=== PATIENT | female | born 1940 | race Caucasian/White ===

== ENCOUNTER 2018-07-13 10:42 | Observation (INO) ==
[2018-07-13] MEDS ORDERED: Sod Chloride 0.9% Inj 1,000 ML IV.SIG ONE (11:19)
--- NOTE | 2018-07-13 11:20 | ED ---
HPI General Chief complaint: Syncope Stated complaint: Medical Time Seen by Provider: 07/13/18 11:09 History of Present Illness HPI narrative: 77-year-old female with a history of hypertension, hyperlipidemia , atrial fibrillation anticoagulated on Eliquis is brought to the ED by EMS for evaluation of near syncope. Patient is here on vacation from [place]. States that she was standing in front of the elevator of her hotel waiting for it to open when she suddenly felt lightheaded, weak and sweaty. States that she felt as though she was going to pass out however never lost consciousness. She did not fall, her helped hold her up and get her seated into a chair. She denies any associated chest pain, shortness of breath, heart palpitations, headache, numbness or tingling, one-sided weakness, fever, chills, cough or cold symptoms, nausea, vomiting, diarrhea, black or bloody stool. States that this morning she took her Diovan and flecainide as prescribed and also took prednisone and half a tramadol tablet which she has been prescribed for hip bursitis. States that when she woke up this morning she was feeling well. States this is never happened to her previously. She is still feeling weak. Denies any alcohol or drug use. No other complaints or concerns. Related Data Home Medications Medication Instructions Recorded Confirmed amlodipine [Norvasc] 5 mg PO DAILY 07/13/18 07/13/18 apixaban [Eliquis] 5 mg PO BID 07/13/18 07/13/18 cholecalciferol (vitamin D3) 400 unit PO BID 07/13/18 07/13/18 [Vitamin D3] coQ10 (ubiquinol) 200 mg PO DAILY 07/13/18 07/13/18 flecainide 50 mg PO Q12H 07/13/18 07/13/18 lorazepam [Ativan] 0.5 mg PO DAILY PRN 07/13/18 07/13/18 lovastatin 20 mg PO QPM 07/13/18 07/13/18 multivitamin 1 tab PO DAILY 07/13/18 07/13/18 [id number] oil [[place]-3 1,000 mg PO DAILY 07/13/18 07/13/18 Fish Oil] potassium chloride 40 meq PO DAILY 07/13/18 07/13/18 prednisone 20 mg PO DAILY 07/13/18 07/13/18 tramadol 50 mg PO Q4-6H PRN 07/13/18 07/13/18 valsartan-hydrochlorothiazide 1 tab PO DAILY 07/13/18 07/13/18 [Diovan HCT] Allergies Allergy/AdvReac Type Severity Reaction Status Date / Time Penicillins Allergy Rash Verified 07/13/18 10:59 acetaminophen [From Percocet] AdvReac Weakness Verified 07/13/18 11:00 oxycodone [From Percocet] AdvReac Weakness Verified 07/13/18 11:00 Review of Systems ROS: all other systems reviewed are negative [facility] Medical History Medical History Atrial fibrillation (Acute) GI bleed (Acute) History of palpitations (Acute) Hyperlipidemia (Acute) Hypertension (Acute) Mitral regurgitation (Acute) Surgical History Surgical History No history of previous surgery (Acute) Total knee replacement status (Acute) Family History Family History Sister No problems noted. Brother HTN (hypertension) Mother HTN (hypertension) Social History Social History Substance History: No History of Abuse Second Hand Smoke Exposure: No Smoking Status: Never smoker How Often Do You Have a Drink Containing Alcohol: Never Immunization History Tetanus Immunization: Unsure Exam Narrative Exam Narrative: GENERAL: Well-nourished and well-developed pleasant patient in no acute distress who is nontoxic appearing. SKIN: Warm and dry without any obvious rashes or lesions. HEAD: Normocephalic and atraumatic. EYES: No injection, drainage, or hyphema noted. PERRLA. EOMI. ENT: No nasal drainage noted. Oropharynx is clear. NECK: Supple and the trachea is midline. CARDIOVASCULAR: Regular rate and rhythm. RESPIRATORY: Breath sounds are equal bilaterally with no accessory muscle use, wheezing, rhonchi, or crackles. GASTROINTESTINAL: Abdomen is soft, non-tender, and nondistended. RECTAL EXAM: No masses or tenderness, stool is brown. Performed in the presence of Hanna BARTON. MUSCULOSKELETAL: No obvious deformities, swelling, cyanosis, or ecchymosis is present throughout the upper and lower extremities. Patient has full range of motion without any signs of neurovascular compromise. Distal pulses are 2+ throughout. Strength 5/5 upper and lower extremities and equal bilaterally. NEUROLOGICAL: Awake, alert, and oriented. Normal speech and gait. Cranial nerves are grossly intact. Procedures Hemaprompt Stool Procedural Steps Taken: specimen placed in appropriate test area, developer placed on specimen and control areas and controls appropriately positive and negative Hemaprompt Stool Result: negative Course Initial Documented Vital Signs Temperature 95.0 F L 07/13/18 10:47 Pulse Rate 89 07/13/18 10:47 Respiratory Rate 16 07/13/18 10:47 Blood Pressure 211/95 H 07/13/18 10:47 Last Documented Vital Signs Temperature 97.4 F L 07/13/18 10:58 Pulse Rate 78 07/13/18 14:15 Respiratory Rate 18 07/13/18 14:15 Blood Pressure 157/90 H 07/13/18 14:15 Pulse Oximetry 99 07/13/18 14:15 Medical Decision Making LESLIE Attestation LESLIE supervised visit: Yes Attestation: Please see mid-level provider note for full history and physical. Patient is a 77-year-old female who presented to the emergency department complaining of feeling weak, sweaty, and dizzy as if she was going to pass out. States that she did not pass out but states that she was found slumped over. She denies chest pain, shortness of breath, fever, chills, abdominal pain, diarrhea, nausea or vomiting, and reports normal p.o. intake. She was afebrile and hypertensive and did not take 1 of her BP meds today. She was given a dose of her blood pressure medication, norvasc. Additionally, her potassium was low she was repleted with 20 MEQ IV over 2 hours and 40 MEQ p.o. She became hypotensive during her ER stay and was given 1 L IV normal saline. He was admitted to the hospitalist for further evaluation and management. MDM Narrative Medical decision making narrative: 77-year-old female is brought to the emergency department by EMS for evaluation of near syncope. Patient is afebrile. Her blood pressure is elevated at 215/91. Otherwise vital signs are normal. IV access is obtained, labs of been drawn and sent. Patient is placed on cardiac telemetry and pulse oximetry monitoring. Patient administered amlodipine 5 mg orally or blood pressure as this is her regular blood pressure medication she has not yet taken. EKG shows atrial flutter with ventricular rate of 72 bpm, no acute STEMI. There are ST depressions in leads I, II, III, V5, V6 and T wave inversions in AVL and V5. CBC shows slightly elevated white blood cell count of 11.8, otherwise unremarkable. Coags are unremarkable. CMP shows hypokalemia with a potassium of 2.9 and slightly decreased calcium of 7.7. Troponin is less than 0.02. Head CT shows chronic deep white matter changes without evidence of acute abnormality. Chest x-ray is negative for any acute abnormalities. Patient with arrhythmia and hypokalemia with near syncope. Potassium repletion ordered. Patient has remained stable while here in the ED. She will be kept in observation. I spoke with Dr. Guzman [facility] who accepts the patient under her service. Medical Screen Exam Complete: Yes Emergency Medical Condition: Yes Differential Diagnosis Differential Diagnosis: Dehydration versus electrolyte abnormality versus atrial fibrillation versus UTI versus GI bleed Lab Data Result diagrams: 07/13/18 11:10 07/13/18 11:10 Lab Results 07/13/18 07/13/18 07/13/18 Range/Units 11:10 11:10 11:10 WBC 11.8 H (4.0-11.0) th/mm3 RBC 4.60 (4.00-5.30) mil/mm3 Hgb 15.2 (11.6-15.3) gm/dL Hct 44.9 (35.0-46.0) % MCV 97.4 (80.0-100.0) fL MCH 33.0 (27.0-34.0) pg MCHC 33.9 (32.0-36.0) % RDW 13.3 (11.6-17.2) % Plt Count 258 (150-450) th/mm3 MPV 8.8 (7.0-11.0) fL Prelim Diff (Auto) Slide review pending Neut % (Auto) 66.7 (16.0-70.0) % Lymph % (Auto) 24.8 (9.0-44.0) % [place] % (Auto) 6.8 (0.0-8.0) % Eos % (Auto) 1.4 (0.0-4.0) % Baso % (Auto) 0.3 (0.0-2.0) % Neut # (Auto) 7.9 H (1.8-7.7) th/mm3 Lymph # (Auto) 2.9 (1.0-4.8) th/mm3 [place] # (Auto) 0.8 (0.0-0.9) th/mm3 Eos # (Auto) 0.2 (0.0-0.4) th/mm3 Baso # (Auto) 0.0 (0.0-0.2) th/mm3 WBC Differential . Diff Scan Auto diff confirmed Differential Comment . PT 11.1 (9.8-11.6) sec INR 1.1 Ratio APTT 20.4 L (24.3-30.1) sec Sodium 143 (136-145) meq/L Potassium 2.9 L* (3.5-5.1) meq/L Chloride 107 (98-107) meq/L Carbon Dioxide 27.2 (21.0-32.0) meq/L Anion Gap 9 (5-15) meq/L BUN 17 (7-18) mg/dL Creatinine 0.82 (0.50-1.00) mg/dL Estimated GFR 68 L (>89) mL/min Random Glucose 98 (74-106) mg/dL Calcium 7.7 L (8.5-10.1) mg/dL Magnesium 1.6 (1.5-2.5) mg/dL Total Bilirubin 0.4 (0.2-1.0) mg/dL AST 17 (15-37) U/L ALT 23 (10-53) U/L Alkaline Phosphatase 51 (45-117) U/L Troponin I Less than 0.02 L (0.02-0.05) ng/mL Total Protein 6.1 L (6.4-8.2) g/dL Albumin 3.1 L (3.4-5.0) g/dL Urine Color (Yellw/Straw) Urine Clarity (Clear) Urine pH (5.0-8.5) Ur Specific [place] (1.002-1.035) Urine Protein (Neg-Trace) mg/dL Urine Glucose (UA) (Negative) mg/dL Urine Ketones (Negative) mg/dL Urine Occult Blood (Negative) Urine Nitrate (Negative) Urine Bilirubin (Negative) Urine Urobilinogen (Less than 2) mg/dL Ur Leukocyte Esterase (Negative) Urine RBC (0-3) /hpf Urine WBC (0-5) /hpf Micro UA Comment Ur Microscopic Review Urine Culture Comments 07/13/18 Range/Units 13:00 WBC (4.0-11.0) th/mm3 RBC (4.00-5.30) mil/mm3 Hgb (11.6-15.3) gm/dL Hct (35.0-46.0) % MCV (80.0-100.0) fL MCH (27.0-34.0) pg MCHC (32.0-36.0) % RDW (11.6-17.2) % Plt Count (150-450) th/mm3 MPV (7.0-11.0) fL Prelim Diff (Auto) Neut % (Auto) (16.0-70.0) % Lymph % (Auto) (9.0-44.0) % [place] % (Auto) (0.0-8.0) % Eos % (Auto) (0.0-4.0) % Baso % (Auto) (0.0-2.0) % Neut # (Auto) (1.8-7.7) th/mm3 Lymph # (Auto) (1.0-4.8) th/mm3 [place] # (Auto) (0.0-0.9) th/mm3 Eos # (Auto) (0.0-0.4) th/mm3 Baso # (Auto) (0.0-0.2) th/mm3 WBC Differential Diff Scan Differential Comment PT (9.8-11.6) sec INR Ratio APTT (24.3-30.1) sec Sodium (136-145) meq/L Potassium (3.5-5.1) meq/L Chloride (98-107) meq/L Carbon Dioxide (21.0-32.0) meq/L Anion Gap (5-15) meq/L BUN (7-18) mg/dL Creatinine (0.50-1.00) mg/dL Estimated GFR (>89) mL/min Random Glucose (74-106) mg/dL Calcium (8.5-10.1) mg/dL Magnesium (1.5-2.5) mg/dL Total Bilirubin (0.2-1.0) mg/dL AST (15-37) U/L ALT (10-53) U/L Alkaline Phosphatase (45-117) U/L Troponin I (0.02-0.05) ng/mL Total Protein (6.4-8.2) g/dL Albumin (3.4-5.0) g/dL Urine Color Straw (Yellw/Straw) Urine Clarity Clear (Clear) Urine pH 8.0 (5.0-8.5) Ur Specific [place] 1.006 (1.002-1.035) Urine Protein Negative (Neg-Trace) mg/dL Urine Glucose (UA) Negative (Negative) mg/dL Urine Ketones Negative (Negative) mg/dL Urine Occult Blood Negative (Negative) Urine Nitrate Negative (Negative) Urine Bilirubin Negative (Negative) Urine Urobilinogen Less than 2 (Less than 2) mg/dL Ur Leukocyte Esterase Negative (Negative) Urine RBC Less than 1 (0-3) /hpf Urine WBC 2 (0-5) /hpf Micro UA Comment Culture not ind Ur Microscopic Review Not Reportable Urine Culture Comments Culture not ind Imaging Data Radiologist's impression: Chest X-Ray 07/13/18 11:19 CONCLUSION: 1. Evidence of previous granulomatous disease. 2. No infiltrate. Head CT 07/13/18 11:21 CONCLUSION: 1. Chronic deep white matter changes without evidence of hemorrhage or mass effect. . Discharge Plan Discharge Disposition Patient Disposition: 30 Still Patient Discharge Details Diagnosis: Near syncope, Acute hypokalemia, Atrial flutter Physicians Team ED Provider: Laura Miguel ED Midlevel Provider: Diana Johnson Primary Care Provider: Primary Care Meli Faust Attending Provider: Lilli Guzman Other Providers: [facility],Insurance Status ED Status: Admitted Observation Patient
[2018-07-13] MEDS ORDERED: amLODIPine 5 MG Tablet PO ONE (11:27)
[2018-07-13 11:37] LABS: Baso % (Auto) 0.3 % (0.0-2.0); Eos # (Auto) 0.2 th/mm3 (0.0-0.4); Eos % (Auto) 1.4 % (0.0-4.0); Hematocrit 44.9 % (35.0-46.0); Hemoglobin 15.2 gm/dL (11.6-15.3); Lymph # (Auto) 2.9 th/mm3 (1.0-4.8); Lymph % (Auto) 24.8 % (9.0-44.0); Mean Corpuscular HGB Conc 33.9 % (32.0-36.0); Mean Corpuscular Volume 97.4 fL (80.0-100.0); Mean Platelet Volume 8.8 fL (7.0-11.0); Mono # (Auto) 0.8 th/mm3 (0.0-0.9); Mono % (Auto) 6.8 % (0.0-8.0); Neut # (Auto) 7.9 th/mm3 (1.8-7.7); Neut % (Auto) 66.7 % (16.0-70.0); Platelet Count 258 th/mm3 (150-450); Red Cell Distribution Width 13.3 % (11.6-17.2); White Blood Count 11.8 th/mm3 (4.0-11.0)
[2018-07-13 11:53] LABS: Alanine Aminotransferase 23 U/L (10-53); Albumin 3.1 g/dL (3.4-5.0); Anion Gap 9 meq/L (5-15); Aspartate Aminotransferase 17 U/L (15-37); Blood Urea Nitrogen 17 mg/dL (7-18); Calcium 7.7 mg/dL (8.5-10.1); Carbon Dioxide 27.2 meq/L (21.0-32.0); Chloride 107 meq/L (98-107); Glomerular Filtration Rate 68 mL/min (>89); Glucose,Random 98 mg/dL (74-106); Magnesium 1.6 mg/dL (1.5-2.5); Sodium 143 meq/L (136-145)
[2018-07-13 11:54] LABS: Activated Partial Thrombo Time 20.4 sec (24.3-30.1); INR 1.1 Ratio; Prothrombin Time 11.1 sec (9.8-11.6)
[2018-07-13 11:57] LABS: Alkaline Phosphatase 51 U/L (45-117); Total Protein 6.1 g/dL (6.4-8.2)
[2018-07-13 12:00] LABS: Potassium 2.9 meq/L (3.5-5.1)
--- NOTE | 2018-07-13 12:00 | XR ---
EXAM DATE: 07/13/2018 11:56 AM EDT AGE/SEX: 77 years / Female INDICATIONS: Short of breath and weakness since this morning. CLINICAL DATA: This is the patient's initial encounter. Patient reports that signs and symptoms have been present for 1 day and indicates a pain score of 0/10. MEDICAL/SURGICAL HISTORY: None. None. COMPARISON: No prior exams available for comparison. FINDINGS: A single AP view of the chest demonstrates the lungs to be symmetrically aerated without evidence of mass, infiltrate or effusion. Prominent calcified right hilar adenopathy. The cardiomediastinal conto urs are unremarkable. Osseous structures are intact. CONCLUSION: 1. Evidence of previous granulomatous disease. 2. No infiltrate. Electronically signed by: Yayo Arnold MD 07/13/2018 11:59 AM EDT
--- NOTE | 2018-07-13 12:08 | CT ---
EXAM DATE: 07/13/2018 12:05 PM EDT AGE/SEX: 77 years / Female INDICATIONS: Syncopal event today CLINICAL DATA: This is the patient's initial encounter. Patient reports that signs and symptoms have been present for 1 day and indicates a pain score of 0/10. MEDICAL/SURGICAL HISTORY: Hypertension. mitral regurgitation a-fib None. RADIATION DOSE: 56.35 CTDI (mGy) COMPARISON: No prior exams available for comparison. TECHNIQUE: CT of the head without contrast. Using automated exposure control and adjustment of the mA and/or kV according to patient size, radiation dose was kept as low as reasonably achievable to ob tain optimal diagnostic quality images. DICOM format image data is available electronically for revi ew and comparison. FINDINGS: Cerebrum: The ventricles are normal for age. No evidence of midline shift, mass lesion, hemorrhage or acute infarction. There are some scattered age indeterminate hypodensity throughout the deep white matter tracts I suspect related to ischemic demyelinization. No definite acute edema or hemorrhage i s identified No extraaxial fluid collections are seen. Posterior Fossa: The cerebellum and brainstem are intact. The 4th ventricle is midline. The cerebe llopontine angle is unremarkable. Extracranial: The visualized portion of the orbits is intact. Skull: The calvaria is intact. No evidence of skull fracture. CONCLUSION: 1. Chronic deep white matter changes without evidence of hemorrhage or mass effect. . Electronically signed by: Terence Hunter MD 07/13/2018 12:07 PM EDT
[2018-07-13] MEDS ORDERED: Potassium Chlor 20 mEq Premix 20 MEQ/100 ML PIGGYBACK IV.SIG ONE (12:19)
[2018-07-13 13:48] LABS: Bilirubin,Urine Negative (Negative); Clarity,Urine Clear (Clear); Color,Urine Straw (Yellw/Straw); Glucose,Urine (UA) Negative (Negative); Leukocyte Esterase,Urine Negative (Negative); Nitrite,Urine Negative (Negative); Specific Gravity,Urine 1.006 (1.002-1.035)
[2018-07-13] MEDS ORDERED: Bisacodyl 10 MG Supp RECTAL PRN (13:48)
[2018-07-13] MEDS ORDERED: LORazepam 0.5 MG Tablet PO PRN (13:51)
--- NOTE | 2018-07-13 14:01 | P.HP ---
History of Present Illness Primary Care Physician: No Primary Care Physician Chief Complaint: nausea, syncope History of Present Illness: Pleasant 77-year-old female with a history of hypertension, hyperlipidemia, atrial fibrillation anticoagulated on Eliquis is brought to the ED by EMS for evaluation of near syncope. Patient is here on vacation from [place]. States that she was standing in front of the elevator of her hotel waiting for it to open when she suddenly felt lightheaded, weak and sweaty. States that she felt as though she was going to pass out however never lost consciousness. She did not fall, her helped hold her up and get her seated into a chair. She denies any associated chest pain, shortness of breath, heart palpitations, headache, numbness or tingling, one-sided weakness, fever, chills, cough or cold symptoms, nausea, vomiting, diarrhea, black or bloody stool. States that this morning she took her Diovan and flecainide as prescribed and also took prednisone and half a tramadol tablet which she has been prescribed for hip bursitis. States that when she woke up this morning she was feeling well. States this is never happened to her previously. She is still feeling weak. Denies any alcohol or drug use. No other complaints or concerns. - Diagnosis (1) Near syncope (2) Acute hypokalemia (3) Atrial flutter Review of Systems All other systems reviewed negative except as stated in HPI PMFSH - History History Provided By: Patient - Medical History Medical History: Medical History (Last Reviewed 07/13/18 @ 14:23 by Lilli Guzman MD) Atrial fibrillation GI bleed History of palpitations Hyperlipidemia Hypertension Mitral regurgitation - Surgical History Surgical History: Surgical History (Last Updated 07/13/18 @ 14:25 by Lilli Guzman MD) No history of previous surgery Total knee replacement status - Family History Family History: Family History (Last Updated 07/13/18 @ 14:23 by Lilli Guzman MD) Sister No problems noted. Brother HTN (hypertension) Mother HTN (hypertension) - Social History I have reviewed the patient's Social History: Yes - Tobacco History Second Hand Smoke Exposure: No Smoking Status: Never smoker - Alcohol History How Often Do You Have a Drink Containing Alcohol: Never - Substance Use History Substance History: No History of Abuse - Immunization History Tetanus Immunization: Unsure Medications and Allergies Active Medications: Active Medications Al Hydroxide/Mg Hydroxide (Milk Of Magnesia Liq) 30 ml PO Q12H PRN PRN Reason: Mild Constipation Amlodipine Besylate (Norvasc) 5 mg PO DAILY NORIS Apixaban (Eliquis) 5 mg PO BID NORIS Bisacodyl (Dulcolax Supp) 10 mg RECTAL DAILY PRN PRN Reason: SEVERE CONSITIPATION Flecainide Acetate (Tambocor) 50 mg PO Q12H NORIS Potassium Chloride (Kcl 20 Meq Premix Inj) 20 meq in 100 mls @ 50 mls/hr IV.SIG ONCE ONE Stop: 07/13/18 14:18 Last Admin: 07/13/18 13:16 Dose: 50 mls/hr Lactulose (Lactulose Liq) 30 ml PO DAILY PRN PRN Reason: SEVERE CONSITIPATION Lorazepam (Ativan) 0.5 mg PO DAILY PRN PRN Reason: Anxiety Non-Formulary Medication (Lovastatin [Lovastatin]) 20 mg PO QPM NORIS Non-Formulary Medication (Multivitamin [Multivitamin]) 1 tab PO DAILY [facility] Non-Formulary Medication (Potassium Chloride [Potassium Chloride]) 40 meq PO DAILY NORIS Non-Formulary Medication (Valsartan-Hydrochlorothiazide [Diovan Hct]) 1 tab PO DAILY NORIS Ondansetron HCl (Zofran Inj) 4 mg IV.PUSH Q6H PRN PRN Reason: NAUSEA OR VOMITING Prednisone (Deltasone) 20 mg PO DAILY [facility] Senna/Docusate Sodium (Giselle-Colace) 1 tab PO BID [facility] Sennosides (Senokot) 17.2 mg PO Q12H PRN PRN Reason: Moderate Constipation Sodium Chloride (Ns Flush) 2 ml IV.FLUSH PRN PRN PRN Reason: FLUSH AFTER USING IV ACCESS Last Admin: 07/13/18 12:16 Dose: 2 ml Tramadol HCl (Ultram) 50 mg PO Q4-6H PRN PRN Reason: Pain Allergies Allergy/AdvReac Type Severity Reaction Status Date / Time Penicillins Allergy Rash Verified 07/13/18 10:59 acetaminophen [From Percocet] AdvReac Weakness Verified 07/13/18 11:00 oxycodone [From Percocet] AdvReac Weakness Verified 07/13/18 11:00 Home Medications Medication Instructions Recorded Confirmed Type amlodipine [Norvasc] 5 mg PO DAILY 07/13/18 07/13/18 History apixaban [Eliquis] 5 mg PO BID 07/13/18 07/13/18 History cholecalciferol (vitamin D3) 400 unit PO BID 07/13/18 07/13/18 History [Vitamin D3] coQ10 (ubiquinol) 200 mg PO DAILY 07/13/18 07/13/18 History flecainide 50 mg PO Q12H 07/13/18 07/13/18 History lorazepam [Ativan] 0.5 mg PO DAILY PRN 07/13/18 07/13/18 History lovastatin 20 mg PO QPM 07/13/18 07/13/18 History multivitamin 1 tab PO DAILY 07/13/18 07/13/18 History kpkyv-[id number]-hia-epa-fish oil [[place]-3 1,000 mg PO DAILY 07/13/18 07/13/18 History Fish Oil] potassium chloride 40 meq PO DAILY 07/13/18 07/13/18 History prednisone 20 mg PO DAILY 07/13/18 07/13/18 History tramadol 50 mg PO Q4-6H PRN 07/13/18 07/13/18 History valsartan-hydrochlorothiazide 1 tab PO DAILY 07/13/18 07/13/18 History [Diovan HCT] Exam Vital signs: Vital Signs 07/13/18 10:47 07/13/18 10:58 07/13/18 11:19 Temperature 95.0 F L 97.4 F L Pulse Rate 89 80 74 Respiratory Rate 16 16 20 Blood Pressure 211/95 H 215/91 H 190/85 H Pulse Oximetry 97 98 Intake & Output 07/12/18 07/13/18 07/13/18 18:59 06:59 18:59 Intake Total 0 / 0 Balance 0 / 0 Weight 70 kg Intake: IV 0 / 0 NS Inj 1,000 ML @ Wide Open IV. 0 / 0 SIG BOLUS ONE Rx#:[id number] Narrative: GENERAL: Pleasant 77 yo F, well nourished, well developed appears in nad. SKIN: Warm and dry. HEAD: Atraumatic. Normocephalic. EYES: Pupils equal and round. No scleral icterus. No injection or drainage. ENT: No nasal bleeding or discharge. Mucous membranes pink and moist. NECK: Trachea midline. No JVD. CARDIOVASCULAR: Regular rate and rhythm. RESPIRATORY: No accessory muscle use. Clear to auscultation. Breath sounds equal bilaterally. GASTROINTESTINAL: Abdomen soft, non-tender, nondistended. Hepatic and splenic margins not palpable. MUSCULOSKELETAL: Extremities without clubbing, cyanosis, or edema. No obvious deformities. NEUROLOGICAL: Awake and alert. No obvious cranial nerve deficits. Motor grossly within normal limits. Five out of 5 muscle strength in the arms and legs. Normal speech. PSYCHIATRIC: Appropriate mood and affect; insight and judgment normal. Results - Labs CBC & Chem 7: 07/14/18 06:18 07/14/18 06:18 Labs: Laboratory Results - last 24 hr 07/13/18 07/13/18 07/13/18 11:10 11:10 11:10 WBC 11.8 H RBC 4.60 Hgb 15.2 Hct 44.9 MCV 97.4 MCH 33.0 MCHC 33.9 RDW 13.3 Plt Count 258 MPV 8.8 Prelim Diff (Auto) Slide review pending Neut % (Auto) 66.7 Lymph % (Auto) 24.8 [place] % (Auto) 6.8 Eos % (Auto) 1.4 Baso % (Auto) 0.3 Neut # (Auto) 7.9 H Lymph # (Auto) 2.9 [place] # (Auto) 0.8 Eos # (Auto) 0.2 Baso # (Auto) 0.0 WBC Differential . Diff Scan Auto diff confirmed Differential Comment . PT 11.1 INR 1.1 APTT 20.4 L Sodium 143 Potassium 2.9 L* Chloride 107 Carbon Dioxide 27.2 Anion Gap 9 BUN 17 Creatinine 0.82 Estimated GFR 68 L Random Glucose 98 Calcium 7.7 L Magnesium 1.6 Total Bilirubin 0.4 AST 17 ALT 23 Alkaline Phosphatase 51 Troponin I Less than 0.02 L Total Protein 6.1 L Albumin 3.1 L - Imaging Impressions Chest X-Ray 07/13/18 11:19 CONCLUSION: 1. Evidence of previous granulomatous disease. 2. No infiltrate. Head CT 07/13/18 11:21 CONCLUSION: 1. Chronic deep white matter changes without evidence of hemorrhage or mass effect. . Caprini VTE Risk Assessment Caprini VTE Risk Assessment: No/Low Risk (score <= 1) Caprini Risk Assessment Model: Point Value = 1 Point Value = 2 Point Value = 3 Point Value = 5 Age 41-60 Minor surgery BMI > 25 kg/m2 Swollen legs Varicose veins or History of unexplained or recurrent spontaneous Oral contraceptives or hormone replacement Sepsis (< 1 month) Serious lung disease, including pneumonia (< 1 month) Abnormal pulmonary function Acute myocardial infarction Congestive heart failure (< 1 month) History of inflammatory bowel disease Medical patient at bed rest Age 61-74 Arthroscopic surgery Major open surgery (> 45 min) Laparoscopic surgery (> 45 min) Malignancy Confined to bed (> 72 hours) Immobilizing plaster cast Central venous access Age >= 75 History of VTE Family history of VTE Factor V Leiden Prothrombin [id number] Lupus anticoagulant Anticardiolipin antibodies Elevated serum homocysteine Heparin-induced thrombocytopenia Other congenital or acquired thrombophilia Stroke (< 1 month) Elective arthroplasty Hip, pelvis, or leg fracture Acute spinal cord injury (< 1 month) Prophylaxis Regimen: Total Risk Factor Score Risk Level Prophylaxis Regimen 0-1 Low Early ambulation 2 Moderate Order ONE of the following: *Sequential Compression Device (SCD) *Heparin 5000 units SQ BID 3-4 Higher Order ONE of the following medications: *Heparin 5000 units SQ TID *Enoxaparin/Lovenox 40 mg SQ daily (WT < 150 kg, CrCl > 30 mL/min) *Enoxaparin/Lovenox 30 mg SQ daily (WT < 150 kg, CrCl > 10-29 mL/min) *Enoxaparin/Lovenox 30 mg SQ BID (WT < 150 kg, CrCl > 30 mL/min) AND/OR *Sequential Compression Device (SCD) 5 or more Highest Order ONE of the following medications: *Heparin 5000 units SQ TID (Preferred with Epidurals) *Enoxaparin/Lovenox 40 mg SQ daily (WT < 150 kg, CrCl > 30 mL/min) *Enoxaparin/Lovenox 30 mg SQ daily (WT < 150 kg, CrCl > 10-29 mL/min) *Enoxaparin/Lovenox 30 mg SQ BID (WT < 150 kg, CrCl > 30 mL/min) AND *Sequential Compression Device (SCD) Assessment and Plan - Assessment (1) Near syncope Code(s): R55 - Syncope and collapse Status: Acute (2) Acute hypokalemia Code(s): E87.6 - Hypokalemia Status: Acute (3) Atrial flutter Code(s): I48.92 - Unspecified atrial flutter Status: Acute - Plan Near Syncope Chronic white matter changes on CT scan of head Severe hypokalemia Hypocalcemia HTN emergency with BP on admission 215/91 Nausea Leucocytosis , hemoconcentration likely or reactive from steroid H/o Atrial fibrillation/ flutter rate controlled on eliquis H/o GI bleed History of palpitations Hyperlipidemia Hypertension Mitral regurgitation EKG reviewed shows atrial flutter with ventricular rate of 72 bpm, no acute STEMI. There are ST depressions in leads I, II, III, V5, V6 and T wave inversions in AVL and V5. CT head: Chronic deep white matter changes without evidence of hemorrhage or mass effect. Will consider consulting neuro for eval Do neurochecks, check 2D ECHO , check Carotid doppler US CXR evidence of previous granulomatous disease With severe hypokalemia with a potassium of 2.9 and slightly decreased calcium of 7.7. Troponin is less than 0.02. Patient denies any chest pain Head CT shows chronic deep white matter changes without evidence of acute abnormality. Potassium repeated Antiemetics as need Advance diet as tolerated Resart home meds as appropriate [place] closely the electrolytes Monitor on telemetry Keep K above 4 and Mag >2. DVT ppx on eliquis (3) Atrial flutter Qualifiers: Atrial flutter type: atypical Qualified Code(s): I48.4 - Atypical atrial flutter
[2018-07-13] MEDS ORDERED: hydrALAZINE 10 MG Tablet PO PRN (14:03)
[2018-07-13] MEDS ORDERED: Sodium Chloride 0.9% 2 ML Flush PRN IV.FLUSH (14:36)
--- NOTE | 2018-07-13 14:55 | ECG ---
Date Performed: 07/13/2018 Time Performed: 10:48:31 PTAGE: 77 years EKG: ATRIAL FLUTTER/TACHYCARDIA NONSPECIFIC ST & T-WAVE ABNORMALITY ABNORMAL RHYTHM ECG NO PREVIOUS TRACING DOCTOR: Thompson Schmitt Interpretating Date/Time 07/13/2018 14:49:38
[2018-07-13] MEDS: Magnesium Oxide 400 MG Tablet PO SCH (14:56)
--- NOTE | 2018-07-13 17:50 | US ---
EXAM DATE: 07/13/2018 5:46 PM EDT AGE/SEX: 77 years / Female INDICATIONS: Syncope. CLINICAL DATA: This is the patient's initial encounter. Patient reports that signs and symptoms have been present for 1 day and indicates a pain score of 0/10. MEDICAL/SURGICAL HISTORY: Hypertension. Atrial Fibrillation. GI Bleed. Palpitations. Hyperlipid emia. Mitral regurgitation. None. COMPARISON: No prior exams available for comparison. VELOCITY PARAMETERS: ICA/CCA Ratio: Right 1.4 , Left 2.0 ICA: Right 82.9 cm/sec, Left 114.6 cm/sec CCA: Right 59.2 cm/sec, Left 58.1 cm/sec ECA: Right 47.9 cm/sec, Left 49.7 cm/sec Vertebral: Right 43.3 cm/sec antegrade, Left 44.1 cm/sec antegrade FINDINGS: Right Carotid: Mild arteriosclerotic plaque is visualized.The waveforms are within normal limits. Left Carotid: Mild arteriosclerotic plaque is visualized. The waveforms are within normal limits. Other: None. CONCLUSION: 1. Right Internal Carotid Artery: Findings indicate <50% stenosis. 2. Left Internal Carotid Artery: Findings indicate <50% stenosis. Electronically signed by: Terence Hunter MD 07/13/2018 5:48 PM EDT
--- NOTE | 2018-07-13 18:36 | ECHRPT ---
Indication: ATRIAL FIB/FLUTTER CONCLUSIONS The left ventricular systolic function is normal with an estimated ejection fraction in the range of 55-60%. Trace mitral valve regurgitation. Mild aortic valve regurgitation. There is trace tricuspid valve regurgitation. BP: / HR: Rhythm: Atrial flutter MEASUREMENTS (Male / Female) Normal Values Technical Quality:Fair 2D ECHO LV Diastolic Diameter PLAX 4.8 cm 4.2 - 5.9 / 3.9 - 5.3 cm LV Systolic Diameter PLAX 3.7 cm IVS Diastolic Thickness 1.1 cm 0.6 - 1.0 / 0.6 - 0.9 cm LVPW Diastolic Thickness 0.9 cm 0.6 - 1.0 / 0.6 - 0.9 cm LV Relative Wall Thickness 0.4 RV Internal Dim ED PLAX 2.3 cm LVOT Diameter 1.8 cm Aortic Root Diameter 2.5 cm LA Systolic Diameter LX 3.0 cm 3.0 - 4.0 / 2.7 - 3.8 cm DOPPLER AV Peak Velocity 172.0 cm/s AV Peak Gradient 11.8 mmHg AV Mean Gradient 5.0 mmHg AV Velocity Time Integral 26.1 cm AI Peak Velocity 419.0 cm/s AI Peak Gradient 70.2 mmHg AI Pressure Half Time 532.5 ms LVOT Peak Velocity 109.0 cm/s LVOT Peak Gradient 4.8 mmHg LVOT Velocity Time Integral 19.2 cm AV Area Cont Eq vti 1.9 cm AV Area Cont Eq pk 1.6 cm Mitral E Point Velocity 74.5 cm/s LV E' Septal Velocity 9.5 cm/s Mitral E to LV E' Septal Ratio 7.9 TR Peak Velocity 240.0 cm/s TR Peak Gradient 23.0 mmHg Right Atrial Pressure 10.0 mmHg Pulmonary Artery Systolic Pressu 33.0 mmHg Right Ventricular Systolic Press 33.0 mmHg PV Peak Velocity 89.5 cm/s PV Peak Gradient 3.2 mmHg FINDINGS LEFT VENTRICLE Normal left ventricular size. The left ventricular systolic function is normal with an estimated ejection fraction in the range of 55-60%. No regional wall motion abnormalities are present. RIGHT VENTRICLE The right ventricular size is normal. LEFT ATRIUM The left atrial size is mildly dilated. RIGHT ATRIUM The right atrial size is normal. ATRIAL SEPTUM Normal atrial septal thickness. AORTA The aortic root and proximal ascending aorta are normal in size on limited imaging. MITRAL VALVE Structurally normal mitral valve. No mitral valve stenosis. Trace mitral valve regurgitation. AORTIC VALVE Probable trileaflet Mild aortic valve regurgitation. No aortic valve stenosis. TRICUSPID VALVE Structurally normal tricuspid valve. There is trace tricuspid valve regurgitation. PULMONARY VALVE No pulmonary valve regurgitation or stenosis. VESSELS The inferior vena cava is normal in size. PERICARDIUM No pericardial effusion. Ja Aguirre DO (Electronically Signed) Final Date:13 July 2018 18:35
[2018-07-13] MEDS: Senna/Docusate Sodium 8.6/50 MG Tablet PO SCH (21:30)
[2018-07-13] MEDS: Sodium Chloride 0.9% 2 ML Flush BID IV.FLUSH SCH (21:30)
[2018-07-13] MEDS: Flecainide 100 MG Tablet PO SCH (22:01)
[2018-07-14 07:45] LABS: Baso % (Auto) 0.1 % (0.0-2.0); Eos # (Auto) 0.1 th/mm3 (0.0-0.4); Eos % (Auto) 0.4 % (0.0-4.0); Hematocrit 45.1 % (35.0-46.0); Hemoglobin 16.2 gm/dL (11.6-15.3); Lymph # (Auto) 1.4 th/mm3 (1.0-4.8); Lymph % (Auto) 10.8 % (9.0-44.0); Mean Corpuscular Hemoglobin 34.3 pg (27.0-34.0); Mean Corpuscular Volume 95.3 fL (80.0-100.0); Mean Platelet Volume 8.6 fL (7.0-11.0); Mono % (Auto) 7.6 % (0.0-8.0); Neut # (Auto) 10.7 th/mm3 (1.8-7.7); Neut % (Auto) 81.1 % (16.0-70.0); Platelet Count 247 th/mm3 (150-450); Red Blood Count 4.73 mil/mm3 (4.00-5.30); Red Cell Distribution Width 13.1 % (11.6-17.2); White Blood Count 13.2 th/mm3 (4.0-11.0)
[2018-07-14] MEDS: Flecainide 100 MG Tablet PO SCH (08:03)
[2018-07-14] MEDS: Senna/Docusate Sodium 8.6/50 MG Tablet PO SCH (08:03)
[2018-07-14 08:08] LABS: Alanine Aminotransferase 29 U/L (10-53); Alkaline Phosphatase 62 U/L (45-117); Anion Gap 8 meq/L (5-15); Aspartate Aminotransferase 19 U/L (15-37); Blood Urea Nitrogen 15 mg/dL (7-18); Calcium 9.7 mg/dL (8.5-10.1); Carbon Dioxide 30.6 meq/L (21.0-32.0); Chloride 97 meq/L (98-107); Glomerular Filtration Rate 70 mL/min (>89); Glucose,Random 96 mg/dL (74-106); Magnesium 2.1 mg/dL (1.5-2.5); Potassium 4.1 meq/L (3.5-5.1); Sodium 136 meq/L (136-145); Total Protein 7.7 g/dL (6.4-8.2)
--- NOTE | 2018-07-14 08:54 | P.PN ---
Subjective Interval history: Patient is in bed appears in not acute distress family at bedside. Patient is able to ambulate without any problems she is not lightheaded. No chest pain or shortness of breath she is saturating well on room air. No palpitations. Patient says she needs refills of blood pressure medications if she does not have enough. Refills provided. Patient is very reliable in taking medications and with follow-up. His plan for her to go on Thursday however she might need to stay an additional couple of days before her trip back in [place]. Patient will follow up with neurology as outpatient in [place] for chronic changes seen on CT scan scan. Physical Exam Vital signs: Vital Signs 07/13/18 10:47 07/13/18 10:58 07/13/18 11:19 Temperature 95.0 F L 97.4 F L Pulse Rate 89 80 74 Respiratory Rate 16 16 20 Blood Pressure 211/95 H 215/91 H 190/85 H Pulse Oximetry 97 98 07/13/18 13:48 07/13/18 14:15 07/13/18 16:01 Temperature Pulse Rate 72 78 74 Respiratory Rate 18 18 20 Blood Pressure 140/82 157/90 H 157/90 H Pulse Oximetry 98 99 98 07/13/18 16:47 07/13/18 18:33 07/13/18 19:42 Temperature 97.5 F L 97.5 F L Pulse Rate 96 H 95 H Respiratory Rate 20 19 Blood Pressure 161/72 H 163/77 H Pulse Oximetry 98 97 96 07/14/18 00:00 07/14/18 04:00 07/14/18 05:49 Temperature 97.9 F Pulse Rate 98 H 93 H 99 H Respiratory Rate 20 18 Blood Pressure 184/89 H 182/83 H Pulse Oximetry 98 97 07/14/18 08:06 07/14/18 08:15 Temperature 98.5 F Pulse Rate 95 H Respiratory Rate 18 Blood Pressure 157/73 H Pulse Oximetry 100 100 Intake & Output 07/13/18 07/14/18 07/14/18 18:59 06:59 18:59 Intake Total 1100 / 1100 Balance 1100 / 1100 Weight 70 kg Intake: IV 1100 / 1100 KCl 20 mEq Premix Inj 20 meq In 100 / 100 100 ml @ 50 mls/hr IV.SIG ONCE ONE Rx#:[id number] NS Inj 1,000 ML @ Wide Open IV. 1000 / 1000 SIG BOLUS ONE Rx#:[id number] Other: Date of Last Bowel Movement 07/13/18 Narrative: GENERAL: Pleasant 77 yo F, well nourished, well developed appears in nad. CARDIOVASCULAR: Regular rate and rhythm. RESPIRATORY: No accessory muscle use. Clear to auscultation. Breath sounds equal bilaterally. GASTROINTESTINAL: Abdomen soft, non-tender, nondistended. Hepatic and splenic margins not palpable. MUSCULOSKELETAL: Extremities without clubbing, cyanosis, or edema. No obvious deformities. NEUROLOGICAL: Awake and alert. No obvious cranial nerve deficits. Motor grossly within normal limits. Five out of 5 muscle strength in the arms and legs. Normal speech. PSYCHIATRIC: Appropriate mood and affect; insight and judgment normal. Results - Labs CBC & Chem 7: 07/14/18 06:18 07/14/18 06:18 Laboratory Results - last 24 hr 07/13/18 07/13/18 07/13/18 11:10 11:10 11:10 WBC 11.8 H RBC 4.60 Hgb 15.2 Hct 44.9 MCV 97.4 MCH 33.0 MCHC 33.9 RDW 13.3 Plt Count 258 MPV 8.8 Prelim Diff (Auto) Slide review pending Neut % (Auto) 66.7 Lymph % (Auto) 24.8 [place] % (Auto) 6.8 Eos % (Auto) 1.4 Baso % (Auto) 0.3 Neut # (Auto) 7.9 H Lymph # (Auto) 2.9 [place] # (Auto) 0.8 Eos # (Auto) 0.2 Baso # (Auto) 0.0 WBC Differential . Diff Scan Auto diff confirmed Differential Comment . PT 11.1 INR 1.1 APTT 20.4 L Sodium 143 Potassium 2.9 L* Chloride 107 Carbon Dioxide 27.2 Anion Gap 9 BUN 17 Creatinine 0.82 Estimated GFR 68 L Random Glucose 98 Calcium 7.7 L Magnesium 1.6 Total Bilirubin 0.4 AST 17 ALT 23 Alkaline Phosphatase 51 Troponin I Less than 0.02 L B-Natriuretic Peptide Total Protein 6.1 L Albumin 3.1 L Urine Color Urine Clarity Urine pH Ur Specific [place] Urine Protein Urine Glucose (UA) Urine Ketones Urine Occult Blood Urine Nitrate Urine Bilirubin Urine Urobilinogen Ur Leukocyte Esterase Urine RBC Urine WBC Micro UA Comment Ur Microscopic Review Urine Culture Comments 07/13/18 07/13/18 07/14/18 11:10 13:00 06:18 WBC 13.2 H RBC 4.73 Hgb 16.2 H Hct 45.1 MCV 95.3 MCH 34.3 H MCHC 36.0 RDW 13.1 Plt Count 247 MPV 8.6 Prelim Diff (Auto) Slide review pending Neut % (Auto) 81.1 H Lymph % (Auto) 10.8 [place] % (Auto) 7.6 Eos % (Auto) 0.4 Baso % (Auto) 0.1 Neut # (Auto) 10.7 H Lymph # (Auto) 1.4 [place] # (Auto) 1.0 H Eos # (Auto) 0.1 Baso # (Auto) 0.0 WBC Differential Diff Scan Differential Comment . PT INR APTT Sodium Potassium Chloride Carbon Dioxide Anion Gap BUN Creatinine Estimated GFR Random Glucose Calcium Magnesium Total Bilirubin AST ALT Alkaline Phosphatase Troponin I B-Natriuretic Peptide 279 H Total Protein Albumin Urine Color Straw Urine Clarity Clear Urine pH 8.0 Ur Specific [place] 1.006 Urine Protein Negative Urine Glucose (UA) Negative Urine Ketones Negative Urine Occult Blood Negative Urine Nitrate Negative Urine Bilirubin Negative Urine Urobilinogen Less than 2 Ur Leukocyte Esterase Negative Urine RBC Less than 1 Urine WBC 2 Micro UA Comment Culture not ind Ur Microscopic Review Not Reportable Urine Culture Comments Culture not ind 07/14/18 06:18 WBC RBC Hgb Hct MCV MCH MCHC RDW Plt Count MPV Prelim Diff (Auto) Neut % (Auto) Lymph % (Auto) [place] % (Auto) Eos % (Auto) Baso % (Auto) Neut # (Auto) Lymph # (Auto) [place] # (Auto) Eos # (Auto) Baso # (Auto) WBC Differential Diff Scan Differential Comment PT INR APTT Sodium 136 Potassium 4.1 D Chloride 97 L D Carbon Dioxide 30.6 Anion Gap 8 BUN 15 Creatinine 0.80 Estimated GFR 70 L Random Glucose 96 Calcium 9.7 D Magnesium 2.1 Total Bilirubin 0.7 AST 19 ALT 29 Alkaline Phosphatase 62 Troponin I B-Natriuretic Peptide Total Protein 7.7 D Albumin 4.0 D Urine Color Urine Clarity Urine pH Ur Specific [place] Urine Protein Urine Glucose (UA) Urine Ketones Urine Occult Blood Urine Nitrate Urine Bilirubin Urine Urobilinogen Ur Leukocyte Esterase Urine RBC Urine WBC Micro UA Comment Ur Microscopic Review Urine Culture Comments - Imaging Impressions Carotid Doppler Study 07/13/18 00:00 CONCLUSION: 1. Right Internal Carotid Artery: Findings indicate <50% stenosis. 2. Left Internal Carotid Artery: Findings indicate <50% stenosis. Chest X-Ray 07/13/18 11:19 CONCLUSION: 1. Evidence of previous granulomatous disease. 2. No infiltrate. Head CT 07/13/18 11:21 CONCLUSION: 1. Chronic deep white matter changes without evidence of hemorrhage or mass effect. . Assessment and Plan - Assessment (1) Near syncope Code(s): R55 - Syncope and collapse Status: Acute (2) Acute hypokalemia Code(s): E87.6 - Hypokalemia Status: Acute (3) Atrial flutter Code(s): I48.92 - Unspecified atrial flutter Status: Acute - Plan Near Syncope Chronic white matter changes on CT scan of head Severe hypokalemia Hypocalcemia HTN emergency with BP on admission 215/91 Nausea Leucocytosis , hemoconcentration likely or reactive from steroid H/o Atrial fibrillation/ flutter rate controlled on eliquis H/o GI bleed History of palpitations Hyperlipidemia Hypertension Mitral regurgitation EKG reviewed shows atrial flutter with ventricular rate of 72 bpm, no acute STEMI. There are ST depressions in leads I, II, III, V5, V6 and T wave inversions in AVL and V5. CT head: Chronic deep white matter changes without evidence of hemorrhage or mass effect. Will consider consulting neuro for eval Do neurochecks. 2D ECHO reviewed normal ejection fraction. Carotid doppler US reviewed and no significant stenosis CXR evidence of previous granulomatous disease With severe hypokalemia with a potassium of 2.9 and slightly decreased calcium of 7.7. Replaced and back to normal. Discussed with the patient will discontinue hydrochlorothiazide. We will also increase amlodipine to 5 mg twice a day and instead of valsartan will give losartan 100 mg daily. Troponin is less than 0.02. Patient denies any chest pain Head CT shows chronic deep white matter changes without evidence of acute abnormality. Patient to follow-up with us as outpatient in [place] with neurology Potassium repeated and back to normal Antiemetics as need. Patient able to tolerate food and potassium is back to normal. Advance diet as tolerated [place] closely the electrolytes Monitor on telemetry Keep K above 4 and Mag >2. DVT ppx on eliquis Discharge plan Patient improved significantly. Able to ambulate without any problems. Patient is discharged home in stable condition to follow-up with PCP and consultants as outpatient. Medications per medication reconciliation Activity ad karla. as tolerated Diet healthy heart diet (3) Atrial flutter Qualifiers: Atrial flutter type: atypical Qualified Code(s): I48.4 - Atypical atrial flutter
[2018-07-14] MEDS ORDERED: amLODIPine 5 MG Tablet PO SCH (09:00)
[2018-07-14] MEDS ORDERED: predniSONE 20 MG Tablet PO SCH (09:00)
[2018-07-14] MEDS: Magnesium Oxide 400 MG Tablet PO SCH (12:49)
[2018-07-14] MEDS: Sodium Chloride 0.9% 2 ML Flush BID IV.FLUSH SCH (12:49)
[2018-07-14] MEDS ORDERED: amLODIPine 5 MG Tablet PO ONE (13:00)
== END 2018-07-14 13:28 | disposition home or self-care (01) ==
LOC: NEDA 10:42 → NEPC 10:42 → NEDA 16:08 → NEPGCP 16:36
PROVIDERS: ADMIT Hospitalist; ATTEND Hospitalist